=== PATIENT | male | born 2005 | race Caucasian/White ===

== ENCOUNTER 2025-04-26 17:24 | Emergency (ER) | payer MEDICAID ==
--- NOTE | 2025-04-26 17:34 | ERPHSYRPT ---
- History of Present Illness Time Seen by Provider: 04/26/25 17:34 Historian: patient Exam Limitations: no limitations Physician History: This is a thin 19-year-old white male patient who arrives by private vehicle with the complaint of 2 days of nausea and vomiting with mild amount of hemoptysis and hematemesis yesterday and this morning associated with coughing and vomiting. He is not nauseated now. He denies chest pain. He denies shortness of breath. He denies abdominal pain. Patient has a prescription for Suboxone and he did take it yesterday. He, by his admission, uses it depending on his symptoms. Patient denies other flulike symptoms. He currently is mainly concerned that there was some specks of blood when he vomited and coughed. He has known drug allergies. He has never been to this emergency department. Timing/Duration: day(s) (2), resolved prior to arrival Activities at Onset: other (Coughing and vomiting) Severity of Pain-Max: mild Severity of Pain-Current: none Modifying Factors: Improves With: coughing (But none today), vomiting (None today) Previous symptoms: no prior history, no recent treatment Allergies/Adverse Reactions: No Known Drug Allergies Allergy (Unverified 04/26/25 17:38) Travel Risk - International Travel Have you traveled outside of the country in past 3 weeks: No - Emerging Infectious Disease Are you exhibiting symptoms associated with any current EIDs: No - Review of Systems Constitutional: No Symptoms Eyes: No Symptoms Ears, Nose, & Throat: No Symptoms Respiratory: Cough Cardiac: No Symptoms (None today) Abdominal/Gastrointestinal: Hematemesis (None today) Genitourinary Symptoms: No Symptoms Musculoskeletal: No Symptoms Skin: No Symptoms Neurological: No Symptoms Psychological: No Symptoms Endocrine: No Symptoms Hematologic/Lymphatic: No Symptoms Immunological/Allergic: No Symptoms All Other Systems: Reviewed and Negative - Past Medical History Pertinent Past Medical History: No - Nursing Vital Signs Nursing Vital Signs: Initial Vital Signs Temperature 98.2 F 04/26/25 17:29 Pulse Rate 99 H 04/26/25 17:29 Respiratory Rate 16 04/26/25 17:29 Blood Pressure 122/80 04/26/25 17:29 O2 Sat by Pulse Oximetry 100 04/26/25 17:29 Pain Scale Pain Intensity 0 - Physical Exam General Appearance: no apparent distress, alert, anxiety, thin Eye Exam: PERRL/EOMI, eyes nml inspection Ears, Nose, Throat Exam: normal ENT inspection, moist mucous membranes Neck Exam: normal inspection, non-tender, supple, full range of motion Respiratory Exam: normal breath sounds, lungs clear, airway intact, No chest tenderness, No respiratory distress Cardiovascular Exam: regular rate/rhythm, normal heart sounds, normal peripheral pulses Gastrointestinal/Abdomen Exam: soft, normal bowel sounds, No tenderness Rectal Exam: not done Back Exam: normal inspection, normal range of motion, No CVA tenderness, No vertebral tenderness Extremity Exam: normal inspection, normal range of motion, pelvis stable Neurologic Exam: alert, oriented x 3, cooperative, finisher card tender II-XII nml as tested, nml cerebellar function, nml station & gait, sensation nml Skin Exam: normal color, warm, dry Lymphatic Exam: No adenopathy SpO2 Interpretation: normal O2 Delivery: Room Air - Course Nursing assessment & vital signs reviewed: Yes Ordered Tests: Active Orders 24 hr Category Date Time Status IV Insertion STAT Care 04/26/25 18:14 Active AMYLASE Stat Lab 04/26/25 18:37 Completed CBC W DIFF Stat Lab 04/26/25 18:30 Completed CMP Stat Lab 04/26/25 18:37 Completed LIPASE Stat Lab 04/26/25 18:37 Completed Medication Summary Generic Name Dose Route Start Last Admin Trade Name Freq PRN Reason Stop Dose Admin Sodium Chloride 1,000 mls @ 999 mls/hr 04/26/25 18:14 04/26/25 18:35 Sodium Chloride 0.9% 1000 Ml IV 04/26/25 19:14 999 mls/hr .Q1H1M STA Administration Discontinued Medications Generic Name Dose Route Start Last Admin Trade Name Freq PRN Reason Stop Dose Admin Sodium Chloride Confirm 04/26/25 18:21 Sodium Chloride 0.9% 1000 Ml Administered 04/26/25 18:22 Dose 1,000 mls @ ud .ROUTE .STK-MED ONE Ondansetron HCl 4 mg 04/26/25 18:14 04/26/25 18:34 Ondansetron Hcl 4 Mg/2 Ml Vial IV 04/26/25 18:15 4 mg STAT ONE Administration Ondansetron HCl Confirm 04/26/25 18:21 Ondansetron Hcl 4 Mg/2 Ml Vial Administered 04/26/25 18:22 Dose 4 mg .ROUTE .STK-MED ONE Pantoprazole Sodium 40 mg 04/26/25 18:14 04/26/25 18:26 Pantoprazole 40 Mg Vial IV 04/26/25 18:15 40 mg STAT ONE Administration Pantoprazole Sodium Confirm 04/26/25 18:21 Pantoprazole 40 Mg Vial Administered 04/26/25 18:22 Dose 40 mg IV .STK-MED ONE Lab/Rad Data: Laboratory Result Diagrams 04/26/25 18:30 04/26/25 18:37 Laboratory Results 04/26/25 04/26/25 Range/Units 18:37 18:30 WBC 6.3 (4.23-9.07) x10^3/uL RBC 4.89 (4.63-6.08) x10^6/uL Hgb 14.8 (13.7-17.5) g/dL Hct 45.4 (40.1-51.0) % MCV 92.8 H (79.0-92.2) fL MCH 30.3 (25.7-32.2) pg MCHC 32.6 (32.3-36.5) g/dL RDW 13.1 (11.6-14.4) % Plt Count 237 (163-337) x10^3/uL MPV 9.3 L (9.4-12.4) fL Gran % 52.9 (34.0-67.9) % Immature Gran % (Auto) 0.3 (0.001-0.429) % Nucleat RBC Rel Count 0.0 (0.00-0.2) % Eos # (Auto) 0.06 (0.04-0.54) x10^3/uL Immature Gran # (Auto) 0.02 (0.001-0.031) x10^3u/L Absolute Lymphs (auto) 2.19 (1.32-3.57) x10^3/uL Absolute Monos (auto) 0.67 (0.30-0.82) x10^3/uL Absolute Nucleated RBC 0.00 (0.00-0.012) x10^3u/L Lymphocytes % 34.5 (21.8-53.1) % Monocytes % 10.6 (5.3-12.2) % Eosinophils % 0.9 (0.8-7.0) % Basophils % 0.8 (0.2-1.2) % Absolute Granulocytes 3.35 (1.78-5.38) x10^3/uL Basophils # 0.05 (0.01-0.08) x10^3/uL Sodium 140 (135-145) mmol/L Potassium 3.5 (3.5-5.1) mmol/L Chloride 97 L (98-107) mmol/L Carbon Dioxide 31 H (22-30) mmol/L Anion Gap 14.6 (5-15) MEQ/L BUN 19 (9-20) mg/dL Creatinine 0.81 (0.66-1.25) mg/dL Estimated GFR 129.5 ML/MIN Glucose 75 (74-106) mg/dL Calcium 9.9 (8.4-10.2) mg/dL Total Bilirubin 1.00 (0.2-1.3) mg/dL AST 31 (17-59) U/L ALT 17 (0-50) U/L Alkaline Phosphatase 61 (38-126) U/L Serum Total Protein 9.2 H (6.3-8.2) g/dL Albumin 5.5 H (3.5-5.0) g/dL Amylase 68 (30-110) U/L Lipase 74 (23-300) U/L - Progress Progress: improved, re-examined Progress Note: 04/26/25 19:15 My medical decision making and the assignment of moderate complexity to this patient's medical issue today is based on review of the patient's past medical history, reviewed patient's medication list, reviewed patient drug allergy list, history present illness and physical findings on examination. The workup in this patient includes placement of a intravenous line, infusion of normal saline solution, CBC, CMP, lipase, infusion of Zofran, infusion of Protonix. Differential diagnosis includes was not limited to gastritis, gastric ulcer, hemoptysis, hematemesis I interpreted the patient's laboratory data results. Based on laboratory data results there are no acute, emergent medical issues. Counseled pt/family regarding: lab results, diagnosis, need for follow-up Medical Desision Making - Independent Historian Additional History obtained from: Relative/friend - Diagnostic Testing Diagnostic test were ordered, analyzed, and reviewed by me: Yes - Risk of complications Low Risk: Low risk of morbidity from additional dx testing or treatment The pt has a mod risk of morbidity or mortality based on: Need for prescription drug management - Departure Departure Disposition: Home Clinical Impression: Hematemesis/vomiting blood Condition: Stable Critical Care Time: No Referrals: DOCTOR,NO FAMILY [Primary Care Provider, UNKNOWN] - Follow up/PCP as directed Additional Instructions: Drink plenty of fluids before advancing diet. Avoid fatty greasy spicy foods. Avoid tobacco use. Take your medications as prescribed. Call your prescribing provider on 04/29/2025, to make arrangements for follow-up appointment for further evaluation management. Prescriptions: Pantoprazole 20 mg [Protonix 20MG Tablet] 20 mg PO DAILY #10 tab
[2025-04-26 17:48] VITALS: TEMP 98.2
[2025-04-26] MEDS ORDERED: PROTONIX 40 MG IV IV ONE (18:21)
[2025-04-26] MEDS ORDERED: Zofran 4 MG/2 ML VIAL ONE (18:21)
[2025-04-26] MEDS: PROTONIX 40 MG IV IV ONE (18:26)
[2025-04-26] MEDS: Zofran 4 MG/2 ML VIAL IV ONE (18:34)
[2025-04-26 18:37] LABS: BASOPHIL % 0.8 % (0.2-1.2); Basophil (Absolute #) 0.05 x10^3/uL (0.01-0.08); Eosinophil (Absolute #) 0.06 x10^3/uL (0.04-0.54); Hematocrit 45.4 % (40.1-51.0); Hemoglobin 14.8 g/dL (13.7-17.5); IMMATURE GRAN # 0.02 x10^3u/L (0.001-0.031); IMMATURE GRAN % 0.3 % (0.001-0.429); Lymphocyte (Absolute #) 2.19 x10^3/uL (1.32-3.57); Mean Corpuscular Hemoglobin 30.3 pg (25.7-32.2); Mean Corpuscular Hgb Concent. 32.6 g/dL (32.3-36.5); Monocyte (Absolute #) 0.67 x10^3/uL (0.30-0.82); NUCLEATED RBC # 0.00 x10^3u/L (0.00-0.012); NUCLEATED RBC % 0.0 % (0.00-0.2); Platelet Count 237 x10^3/uL (163-337); Red Blood Count 4.89 x10^6/uL (4.63-6.08); White Blood Count 6.3 x10^3/uL (4.23-9.07)
[2025-04-26 18:50] LABS: Calcium 9.9 mg/dL (8.4-10.2); Carbon Dioxide 31.0 mmol/L (22-30); Creatinine 1 0.81 mg/dL (0.66-1.25); EST GLOMERULAR FILTRATION RATE 129.5 ML/MIN; Glucose 75.0 mg/dL (74-106); Potassium 3.5 mmol/L (3.5-5.1); SGOT/AST 31.0 U/L (17-59); SGPT/ALT 17.0 U/L (0-50); Total Protein 9.2 g/dL (6.3-8.2)
[2025-04-26 19:08] VITALS: RESP 18
[2025-04-26 19:52] VITALS: BP 117/59; PULSE 79; O2SAT 98
== END 2025-04-26 19:50 | disposition home or self-care (01) ==
LOC: ED 17:24
DX: K92.0 Hematemesis (principal); Z79.891 Long term (current) use of opiate analgesic